=== PATIENT | female | born 1970 | race Caucasian/White ===

== ENCOUNTER 2019-02-22 23:43 | Emergency (ER) | payer MEDICAID ==
[2019-02-23] MEDS ORDERED: PROMETHAZINE/DM (CUP) PO (04:00)
[2019-02-23] MEDS: KETOROLAC 60 MG INJ IM (04:22)
[2019-02-23] MEDS: DEXAMETHASONE 10 MG/ML 1 ML INJ IM (04:22)
[2019-02-23] MEDS: PROMETHAZINE/DM (CUP) PO (04:23)
== END 2019-02-23 06:10 | disposition home or self-care (01) ==
LOC: FTE 23:43
DX: J02.9 Acute pharyngitis, unspecified (principal); H92.03 Otalgia, bilateral; F17.210 Nicotine dependence, cigarettes, uncomplicated
CPT/HCPCS: 81025; 87880; 96372; 99284-25